=== PATIENT | female | born 1955 | race Caucasian/White ===

== ENCOUNTER 2019-05-11 08:44 | Day surgery (SDC) | payer OTHER ==
[~2019-05-11] VITALS: Ht 157.5 cm; Wt 75.0 kg
[~2019-05-11 08:44] MED LIST: SODIUM CHLORIDE 0.9% 1,000 ML IV ONE
[2019-05-11] MEDS ORDERED: PROPOFOL 1% 20 ML VIAL IVP ONE (08:45)
[2019-05-11] MEDS ORDERED: LIDOCAINE/PF 2% 5 ML VIAL IM ONE (08:45)
[2019-05-11] MEDS ORDERED: SODIUM CHLORIDE 0.9% 1,000 ML IV ONE (09:00)
[2019-05-11] MEDS ORDERED: BUSP15 PO (09:08)
[2019-05-11] MEDS ORDERED: LISI-661 PO (09:08)
[2019-05-11] MEDS ORDERED: MULT1TAB66 PO (09:08)
[2019-05-11] MEDS ORDERED: IBUP-2071 PO (09:08)
[2019-05-11] MEDS ORDERED: LORA10TA7 PO (09:08)
[2019-05-11] MEDS ORDERED: MECL-111 PO (09:08)
[2019-05-11] MEDS ORDERED: OMEP20 PO (09:08)
[2019-05-11] MEDS ORDERED: TRAZ-220 PO (09:08)
[2019-05-11] MEDS ORDERED: DIPH25 PO (09:08)
[2019-05-11] MEDS ORDERED: ESCI10TA PO (09:08)
[2019-05-11] MEDS ORDERED: PROM12.513 PO (09:08)
[2019-05-11] MEDS ORDERED: OXYGEN THERAPY IH SCH (20:00)
== END 2019-05-11 12:10 | disposition home or self-care (01) ==
LOC: SURGERY 08:44
PROVIDERS: ATTEND Specialist
DX: K74.60 Unspecified cirrhosis of liver (principal); Z98.84 Bariatric surgery status; Z86.19 Personal history of other infectious and parasitic diseases; Z95.0 Presence of cardiac pacemaker; Z98.890 Other specified postprocedural states; Z82.49 Family history of ischemic heart disease and other diseases of the circulatory system; Z80.1 Family history of malignant neoplasm of trachea, bronchus and lung; Z86.010 Personal history of colon polyps; I10 Essential (primary) hypertension
CPT/HCPCS: 43235; 93005; J2704; J3490; J7030